=== PATIENT | female | born 2005 | race Caucasian/White ===

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

== ENCOUNTER 2025-08-05 11:24 | Emergency (ER) | payer OTHER, SELFPAY ==
--- OUTSIDE RECORDS SUMMARY | 2025-08-05 11:28 | XMS_ITS | Encounter Summary ---
Author Organization [facility] Address [address] [facility] [place] [address] Care Team Providers Care Chain Saw Driver Name Role Phone Katelynn Nelson Yanni LOREDON-AUTOGRAPHER Primary Care Provider Encounter Details Date Type Department Care Team (Late Contact Info) Description 07/13/2025 Results Follow-Up [facility] - Neurology [address] [place] [phone] Bridget Pierre APRN-AUTOGRAPHER [address] [place] [address] [address] [place] [address] Social History Tobacco Use Types Packs/Day Years Used Date Smoking Tobacco: Never Alcohol Use Standard Drinks/Week Comments No 0 (1 standard drink = 0.6 oz pur e alcohol) Comments No Sex and Gender Information Value Date Recorded Sex Assigned at Not on file Legal Sex Female 9:12 AM IVORY POLISHER Gender Identity Not on file Sexual Orientation Not on file documented as of this encounter Plan of Treatment Upcoming Encounters Date Type Department Care Team (Late Contact Info) Description 10/21/2025 8:30 AM IVORY POLISHER Office Visit [facility] - Neurology [address] [place] [phone] Bridget Pierre WASTE MANAGEMENT ENGINEER-AUTOGRAPHER [address] [place] [address] [address] [place] [phone] documented as of this encounter Visit Diagnoses Not on filedocumented in this encounter Care Teams Chain Saw Driver Relationship Specialty Start Date End Date Katelynn Nelson, NIGHAT-AUTOGRAPHER [address] [place] [address] PCP - General Nurse Practitioner Family 05/02/25 documented as of this encounter
--- OUTSIDE RECORDS SUMMARY | 2025-08-05 11:28 | XMS_ITS | Encounter Summary ---
Author Organization [facility] Address [address] [place] [address] Care Team Providers Care Tank Wagon Driver Name Role Phone Katelynn Nelson NP Primary Care Provider + [phone] Encounter Details Date Type Department Care Team (Late st Contact Info) Description 04/18/2025 MyChart Message Enc [facility] Medical Group Multispecialty Care - [facility] [address] [facility], [address] [place] [address] Marjan Shearer MD [address] [place], [place] [id number] Migraine Social History Tobacco Use Types Packs/Day Years Used Date Smoking Tobacco: Never Passive Smoke Exposure: Never Smokeless Tobacco: Never Alcohol Use Standard Drinks/Week Comments No 0 (1 standard drink = 0.6 oz pur e alcohol) AUDIT-C Answer Date Recorded Frequency of Alcohol Consumption Never 03/16/2021 Average Number of Drinks Not on file 021 Frequency of Binge Drinking Not on file 05/2021 PHQ-2 Answer Date Recorded Patient Health Questionnaire-2 Score 4 04/11/2025 Comments No Sex and Gender Information Value Date Recorded Sex Assigned at Female 12/15/2024 8:04 AM PET FOOD DEBONER Legal Sex Female 5:22 PM CDT Gender Identity Female 12/15/2024 8:04 AM PET FOOD DEBONER Sexual Orientation Not on file documented as of this encounter Plan of Treatment Upcoming Encounters Date Type Department Care Team (Late st Contact Info) Description 11/23/2025 1:20 PM PET FOOD DEBONER Office Visit [facility] Medical Group Family & Internal Medicine - [place] [address] [place] [address] [place] [address] [facility] [address] [place], [place] [phone] documented as of this encounter Visit Diagnoses Not on filedocumented in this encounter Additional Health Concerns Assessment Noted Time PHQ-9 Depression Total Score: 20 025 11:53 AM CDT documented as of this encounter Care Teams Tank Wagon Driver Relationship Specialty [place] [address] [facility] [address] [place] [address] PCP - General Nurse Practitioner Family 06/05/23 documented as of this encounter
--- OUTSIDE RECORDS SUMMARY | 2025-08-05 11:28 | XMS_ITS | Clinical Summary ---
Author Organization [facility] Address [address] [place] [address] Care Team Providers Care Hydrographer Name Role Phone Katelynn Nelson NP Primary Care Provider + [phone] Allergies No known active allergies Medications etonogestrel (NEXPLANON) 68 MG SC implant Inject 1 each (68 mg total) into the skin. 11/07/20 22 025 Active spironolactone (ALDACTONE) 100 MG tablet Active propranolol (INDERAL) 20 MG tabletIndications: Situational mixed anxiety and depressive disorder Take 1 tablet (20 mg total) by mouth 3 (three) times daily. 90 tablet 2 04/11/20 25 Active Additional Information Patient taking differently:20 mg OralPRN, Reported on 05/23/2025 rimegepant (NURTEC) 75 MG disintegrating tabletIndications: Migraine without aura, not intractable, without status migrainosus Take 1 tablet (75 mg total) by mouth every other day. Max of 1 tablet (75 mg) in 24 hours. 16 tablet 5 04/13/20 25 Active escitalopram (LEXAPRO) 10 MG tabletIndications: Situational mixed anxiety and depressive disorder Take 1 tablet (10 mg total) by mouth daily. 90 tablet 3 05/23/20 25 Active valACYclovir (VALTREX) 1 g tabletIndications: Herpes labialis Take 2 tablets (2,000 mg total) by mouth every 12 (twelve) hours. 4 tablet 5 06/13/20 25 Active Active Problems Problem Noted Date Diagnosed Date Intractable chronic migraine with aura with status migrainosus 12/23/2024 Migraine with aura and with status migrainosus, not intractable 06/01/2024 Overweight (BMI 25.0-29.9) 06/01/2024 Closed fracture of distal en d of right fibula with routine healing 01/02/2017 Encounters Date Type Department Care Team Description 05/30/2025 Telephone [facility] Internal [address] [address] Katelynn Nelson NP Medication Problem 05/26/2025 MyChart Message Enc [facility] [address] [address] Katelynn Nelson NP Cold Sore 05/23/2025 1:00 PM CDT Office Visit [facility] Internal [address] [address] Katelynn Nelson, TEMITOPE Anxiety (1 mo f/u); Depression (1 mo f/u) 05/23/2025 Travel 05/10/2025 MyChart Message Enc [address] [address] Katelynn Nelson, TEMITOPE TB test from Last 3 Months Immunizations Immunization Administration Dates Next Due DTaP (Daptacel) 06/12/2009, 5,02/11/2005,2004,2004 HPV4 (Gardasil) 02/11/2017,11/15/2016,06/12/2016 Hepatitis A (Generic) 07/06/2019,03/23/2018 Hepatitis A (Havrix [address]) 07/06/2019, 018 Hepatitis B Pediatric 02/11/2005,2004,06/11 Hib (Generic) 10/10/2005, 5,2004,2003 Hib (Omni-Hib) 10/10/2005, 5,2004,2003 Influenza (Generic) 09/29/2020, 9,08/04/2018,2014 Influenza Adult (Generic) 06/26/2023,10/09/2022, 10/12/2021 MMR 06/12/2009,07/11/2005 Menactra 07/18/2020,08/24/2015 PFIZER COVID-19 (ORIGINAL FORMULATION, PURPLE CAP) mRNA, LNP-S, PF, 30 MCG/0.3 ML DOSE 02/14/2021,01/24/2021 Polio IPV (Ipol) 06/12/2009, 5,2004,2003 Tdap (Generic) 08/24/2015 Varicella (Generic) 06/12/2009,07/11/2005 Family History Medical History Relation Comments Arthritis Brother Arthritis Maternal Grandmother Defects Mother Hole in heart Mental Health Mother Stroke Mother Mental Health Sister Relation Status Comments Brother Father Alive Maternal Grandmother Mother Alive Sister Social History Tobacco Use Types Packs/Day Years Used Date Smoking Tobacco: Never Passive Smoke Exposure: Never Smokeless Tobacco: Never Tobacco Cessation:Counseling Given: No Alcohol Use Standard Drinks/Week Comments No 0 [...] Sex Assigned at Female 12/15/2024 8:04 AM MANAGER STATISTICAL Legal Sex Female 5:22 PM CDT Gender Identity Female 12/15/2024 8:04 AM MANAGER STATISTICAL Sexual Orientation Not on file Last Filed Vital Signs Vital Sign Reading Time Taken Comments Blood Pressure 109/73 05/23/2025 12:51 PM CDT Pulse 86 05/23/2025 12:51 PM CDT Temperature 37.3 C (99.1 F) 05/23/2025 12:51 PM CDT Respiratory Rate 24 05/23/2025 12:51 PM CDT Oxygen Saturation 100% 05/23/2025 12:51 PM CDT Inhaled Oxygen Concentration - - Weight 73.7 kg (162 lb 6.4 oz) 05/23/2025 12:51 PM CDT Height 167.6 cm (5' 6) 05/23/2025 12:51 PM CDT Body Mass Index 26.21 05/23/2025 12:51 PM CDT Plan of Treatment Upcoming Encounters Date Type Department Care Team (Late st Contact Info) Description 11/23/2025 1:20 PM MANAGER STATISTICAL Office Visit [facility] Medical Group Family & Internal Medicine [facility] [address] [place] [address] [place] [address] [facility] [address] [place] [address] Health Maintenance Due Date Last Done Comments Annual Physical 2007 Chlamydia Screening Females ages 16-24 11/07/2022 11/07/2021 Cervical Cancer Screening Pap Smear (Age 21 to 29) Every 3 Years 11/07/2024 11/07/2021 Cervical Cancer Screening 11/07/2024 COVID-19 Vaccine ( season) 2025 10/09/2022, 11/05/2021, 02/14/2021, Additional history exists DTaP, Tdap and Td Vaccines (7 - Td or Tdap) 08/24/2025 08/24/2015, 06/12/2009, 10/10/2005, Additional history exists Meningococcal B Vaccine (1 of 2 - Standard) 04/11/2026 Postponed from 2020 (Patient Refused) Hepatitis C 06/01/2054 Postponed from 2022 (Patient Refused) Hepatitis B Vaccines Completed 02/11/2005, 2004, 2004 HPV Vaccines Completed 02/11/2017, 04/2017, 06/12/2016 Meningococcal Vaccine Completed 07/18/2020, 015 PHQ-2 (Physician [place]) Completed 04/11/2025 Pneumococcal Vaccine: Pediatrics (0 to 5 Years) and At-Risk Patients (6 to 49 Years) Aged Out No longer eligible based on patient's age to complete this topic RSV Immunizations Under 20 Months Aged Out No longer eligible based on patient's age to complete this topic Insurance [employer] OPEN ACCESS [facility] Care Teams Hydrographer Relationship Specialty [place] [phone] [address] [place] [phone] PCP - General Nurse Practitioner Family 06/05/23
--- OUTSIDE RECORDS SUMMARY | 2025-08-05 11:29 | XMS_ITS | Clinical Summary ---
Author Organization [facility] Address [address] [facility] Attn: Epic Prelude ADT KENRICK [place] [address] Care Team Providers Care Water Pipe Installer Name Role Phone Unavailable Primary Care Provider Unavailabl e Allergies No known active allergies Medications ketorolac tromethamine (TORADOL) 10 mg tablet Take 1 Tablet (10 mg) by mouth every 6 hours as needed for Pain. 12 Tablet 12/05/2022 Active Social History Tobacco Use Types Packs/Day Years Used Date Smoking Tobacco: Never Assessed Adolescent Education Answer Date Record ed Getting School Help Needed Not on file 06/15 Comments Unknown Sex and Gender Information Value Date Recorded Sex Assigned at Not on file Legal Sex Female 8:56 PM TOWN MANAGER Gender Identity Not on file Sexual Orientation Not on file Last Filed Vital Signs Vital Sign Reading Time Taken Comments Blood Pressure 130/70 12/05/2022 4:37 PM TOWN MANAGER Pulse 81 04/06/2019 7:13 PM CDT Temperature 36.5 C (97.7 F) 12/05/2022 4:37 PM TOWN MANAGER Respiratory Rate 18 12/05/2022 4:37 PM TOWN MANAGER Oxygen Saturation 100% 12/05/2022 4:37 PM TOWN MANAGER Inhaled Oxygen Concentration - - Weight 70.3 kg (155 lb) 12/05/2022 4:37 PM TOWN MANAGER Height 167.6 cm (5' 6) 12/05/2022 4:37 PM TOWN MANAGER Body Mass Index 25.02 12/05/2022 4:37 PM TOWN MANAGER Plan of Treatment Health Maintenance Due Date Last Done Comments CHLAMYDIA SCREENING (ANNUAL) 11-24 YEARS 2015 HPV VACCINES (1 - 3-dose series) 2019 DTAP/TDAP/TD VACCINES (1 - Tdap) 2023 HEPATITIS B VACCINES (1 of 3 - 19+ 3-dose series) 06/11 INFLUENZA VACCINE (#1) 2025 CERVICAL CANCER SCREENING 2025 HPV/Cotest (21-29) 2025 PAP SMEAR 2025 Insurance [employer] [place] Member Subscriber Plan / Payer (Ef fective 2023-Present) Name:Tosha Bragg Relation to Subscriber:Child Name:Sheree Bragg Date of :1972 (Home) Address: [facility] [place] [address] Payer ID:Not on file Group ID:Not on file Type:[facility] Address: [address] BLUE ACCESS/TRUE BLUE PPO
--- OUTSIDE RECORDS SUMMARY | 2025-08-05 11:29 | XMS_ITS | Clinical Summary ---
Author Organization [facility] Address [address] [place] [address] Care Team Providers Care Tire Buster Name Role Phone No, Physician Primary Care Provider [phone] Allergies No known active allergies Medications drospirenone, contraceptive, (Slynd) tablet tablet Take 1 each (4 mg total) by mouth daily 54 tablet 10/21/2022 Active Hospital, Clinic, or Other Facility Administered Medication Ordered Dose Route Frequency Start Date End Date Status etonogestreL (NEXPLANON) implant 68 mgIndications:Pregna ncy Contraception 68 mg subderm Continuous (implanted device) 11/07/2022 11/06/2025 Active Active Problems No known active problems Family History Medical History Relation Name Comments Breast cancer Mother's Sister Ovarian cancer Neg Hx Relation Name Status Comments Mother's Sister Social History Tobacco Use Types Packs/Day Years Used Date Smoking Tobacco: Never Comments No Sex and Gender Information Value Date Recorded Sex Assigned at Not on file Legal Sex Female 6:47 PM CDT Gender Identity Not on file Sexual Orientation Not on file Obstetrics History Para Term AB IAB SAB Ectopic Multiple Livin g Live Births 0 0 0 0 0 0 0 0 0 0 0 Last Filed Vital Signs Vital Sign Reading Time Taken Comments Blood Pressure 116/68 11/07/2022 8:41 AM PRESCHOOL LEAD TEACHER Pulse 68 07/10/2021 1:59 AM CDT Temperature 36.4 C (97.5 F) 07/10/2021 1:59 AM CDT Respiratory Rate 18 07/10/2021 1:59 AM CDT Oxygen Saturation 98% 07/09/2021 7:51 PM CDT Inhaled Oxygen Concentration - - Weight 71.8 kg (158 lb 6.4 oz) 11/07/2022 8:41 A M PRESCHOOL LEAD TEACHER Height 167.6 cm (5' 5.98) 11/07/2022 8:41 AM CS T Body Mass Index 25.58 11/07/2022 8:41 AM PRESCHOOL LEAD TEACHER Plan of Treatment Health Maintenance Due Date Last Done Comments Cervical Cancer Screening 2004 Depression Screening 2004 Hepatitis C Screening 2004 Meningococcal B Vaccine (1 of 2 - Standard) 2020 Regular Well Visit/Exam 18-64 2022 Chlamydia and Gonorrhea (GC/CT) Screening 11/07/2022 11/07/2021 Covid-19 Vaccine ( season) 2025 10/09/2022, 11/05/2021, 02/14/2021, Additional history exists Influenza Vaccine (#1) 2025 , 10/12/2021, 09/29/2020, Additional history exists DTaP/Tdap/Td Vaccine (7 - Td or Tdap) 08/24/2025 08/24/2015, 06/12/2009, 10/10/2005, Additional history exists Hepatitis B Screening Completed 02/11/2005 , 2004, 2004 Varicella Vaccines Completed 06/12/2009, 07/11/2005 HPV Vaccines Completed 02/11/2017, 04/2017, 06/12/2016 Meningococcal Vaccine Completed 07/18/2020, 015 Pneumococcal vaccine <65 Aged Out No longer eligible based on patient's age to complete this topic Procedures Procedure Name Priority Date/Time Associated Diagnosis Comments N. GONORRHOEAE/C. TRACHOMATIS AMPLIFICATION Routine 11/07/2021 12:00 AM PRESCHOOL LEAD TEACHER Screening for STD (sexually transmitted disease) from Last 3 Months or Most Recently Relevant to Health Maintenance Results * N. gonorrhoeae/C. trachomatis Amplification Urine (11/07/2021 12:00 AM PRESCHOOL LEAD TEACHER) C. trachomatis Not Detected Not Detected YOCASTA LLANES Comment:Testing performed by : [facility], [address] [place] [address], [place]., [address] N. gonorrhoeae Not Detected Not Detected YOCASTA LLANES Comment: Interpretive Data Testing performed by the [facility]. This assay detects Chlamydia trachomatis and Neisseria gonorrhoeae by nucleic acid amplification testing (NAAT). This test is approved by the [place] Food and Drug Administration and the performance characteristics have been verified by the laboratory. The performance characteristics of this test have not been evaluated in individuals less than 14 years of age. Current Interpretive Data was last revised on 2019. Testing performed by: [facility], [address] [place] [address]., [address] Urine (None) 11/07/2021 11/08/2021 1 1:19 AM PRESCHOOL LEAD TEACHER us Leela Day [facility] MICROBIOLOGY - GENE RAL ORDERABLES Final Result YOCASTA [address] [facility] Department [place] [address] from Last 3 Months or Most Recently Relevant to Health Maintenance Insurance [employer] [facility] [employer]THEM ACCESS [employer] [facility] [place] [address] [facility] [employer]S * Guarantor: SYSTEM [employer] Account Type Relation to Patient Date of Phone Billing Address Personal/Family Care Teams Tire Buster Relationship Specialty Start Date End Date No, Physician PCP - General 11/07/22
--- OUTSIDE RECORDS SUMMARY | 2025-08-05 11:29 | XMS_ITS | Encounter Summary ---
Author Organization [facility] Address [address] [place] [address] Care Team Providers Care Station Manager Name Role Phone Katelynn Nelson NP Primary Care Provider + [phone] Encounter Details Date Type Department Care Team (Late st Contact Info) Description 05/10/2025 Weimit Message Enc [facility] Medical Group Family & Internal Medicine [address] [address] Katelynn Nelson NP [address] [place] [address] TB test Social History Tobacco Use Types Packs/Day Years [...] Sex Assigned at Female 12/15/2024 8:04 AM PUBLIC WELFARE DIRECTOR Legal Sex Female 5:22 PM CDT Gender Identity Female 12/15/2024 8:04 AM PUBLIC WELFARE DIRECTOR Sexual Orientation Not on file documented as of this encounter Plan of Treatment Upcoming Encounters Date Type Department Care Team (Late st Contact Info) Description 11/23/2025 1:20 PM PUBLIC WELFARE DIRECTOR Office Visit [facility] Medical Group Family & Internal Medicine - [place] [address] [place] [address] [place] [address] [facility] [address] [place] [phone] documented as of this encounter Visit Diagnoses Not on filedocumented in this encounter Additional Health Concerns Assessment Noted Time PHQ-9 Depression Total Score: 20 025 11:53 AM CDT documented as of this encounter Care Teams Station Manager Relationship Specialty Start [place] [address] [facility] [address] [place] [address] PCP - General Nurse Practitioner Family 06/05/23 documented as of this encounter
--- OUTSIDE RECORDS SUMMARY | 2025-08-05 11:29 | XMS_ITS | Encounter Summary ---
Author Organization [facility] Address [address] [place] [address] Care Team Providers Care Geographic Information Systems Analyst Name Role Phone Katelynn Nelson NP Primary Care Provider + [phone] Encounter Details Date Type Department Care Team (Late st Contact Info) Description 11/27/2024 SolFocus Message Enc [facility] Medical Group Family & Internal Medicine [address] [address] Katelynn Nelson [place] [phone] [place] [address] Migraine medication Social History Tobacco Use Types Packs/Day Years [...] Answer Date Recorded Patient Health Questionnaire-2 Score 0 02/25/2024 Comments No Sex and Gender Information Value Date Recorded Sex Assigned at Female 12/15/2024 8:04 AM TWISTER FRAME TENDER Legal Sex Female 5:22 PM CDT Gender Identity Female 12/15/2024 8:04 AM TWISTER FRAME TENDER Sexual Orientation Not on file documented as of this encounter Progress Notes * Katelynn Nelson NP - 11/30/2024 12:36 PM CST We can try some better medication for migraine management, we can add a referral order to neurology, and [facility] needs cardiology for tilt table test for diagnosis. Please help patient schedule an appointment so we can help move forward. TER FRAME TENDER * Liseth Shafer MA - 11/29/2024 9:36 AM CST Please advise TER FRAME TENDER documented in this encounter Plan of Treatment Upcoming Encounters Date Type Department Care Team (Late st Contact Info) Description 11/23/2025 1:20 PM TWISTER FRAME TENDER Office Visit [facility] Medical Group Family & Internal Medicine - [place] [phone] Katelynn Nelson NP [address] [place] [address]. [place] [address] documented as of this encounter Visit Diagnoses Not on filedocumented in this encounter Care Teams Geographic Information Systems Analyst Relationship Specialty Start Date End Date Katelynn Nelson NP [address] [place] [address] PCP - General Nurse Practitioner Family 06/05/23 documented as of this encounter
--- OUTSIDE RECORDS SUMMARY | 2025-08-05 11:29 | XMS_ITS | Clinical Summary ---
Author Organization [facility] Address [address] [place] [address] Care Team Providers Care Mobile Application Architect Name Role Phone LeslieKatelynn kaplan CUSTOMER CONTACT SPECIALIST-AUTO HAULER Primary Care Provider Source Comments [facility],non-owned Affiliates and Associated Physician Practices is amultiple site organization consisting of ambulatory clinics and hospital sitesin [place], [place], [place] and [place]. This disclosure is being madepursuant to the Care Everywhere program and may not contain all information available regarding this patient. Last updated 18.[facility] Allergies No known active allergies Medications * Be aware that medications may not be up to date on this document. Alwaysverify current medications with the patient. spironolactone (Aldactone) 100 MG tablet Take 1 (one) tablet by mouth once daily Active etonogestrel (Nexplanon) 68 MG implant Inject 68 (sixty eight) mg subcutaneously 11/07/20 22 025 Active escitalopram (Lexapro) 10 MG tablet Take 1 (one) tablet by mouth once daily 05/23/20 25 Active propranolol (Inderal) 20 MG tabletIndicatio ns:Intractable chronic migraine with aura with status migrainosus Take 1 (one) tablet by mouth 2 times daily 60 tablet 2 06/17/20 25 Active fremanezumab-vf rm (Ajovy) 225 MG/1.5ML injectionIndica tions:Intractab le chronic migraine with aura with status migrainosus Inject 1.5 mL subcutaneously every 30 days 1.5 mL 5 06/17/20 25 Active rimegepant (Nurtec) 75 MG tabletIndicatio ns:Intractable chronic migraine with aura with status migrainosus Take 75 mg by mouth once daily as needed for Migraine 8 tablet 5 06/17/20 25 Active Active Problems Problem Noted Date Diagnosed Date Intractable chronic migraine with aura with status migrainosus 12/23/2024 Migraine with aura and with status migrainosus, not intractable 06/01/2024 Closed fracture of distal en d of right fibula with routine healing 01/02/2017 Closed fracture of part of fibula 11/19/2016 Encounters Date Type Department Care Team Description 07/13/2025 Results Follow-Up [facility] - Neurology [address] [place] [phone] Bridget Pierre APRN-CNP 07/08/2025 8:11 AM CDT - 07/08/2025 11:59 PM CDT Hospital Encounter [facility] [address] [place] [address] Bridget Pierre APRN-CNP Discharge Disposition: Home or Self Care 07/08/2025 Travel 06/20/2025 Telephone [facility] - Neurology [address] [place] [phone] Bridget Pierre APRN-CNP Medication Prior Auth Request (Ajovy) 06/17/2025 9:00 AM CDT Office Visit [facility] - Neurology [address] [place] [phone] Bridget Pierre APRN-CNP Intractable chronic migraine with aura with status migrainosus (Primary Dx); Peripheral vision loss, bilateral; Chronic daily headache; Tension headache 06/17/2025 Travel from Last 3 Months Immunizations Immunization Administration Dates Next Due DTAP 5 PERTUSSIS ANTIGENS 06/12/2009,11/2004,02/11/2005,12/10,2004 HEP A PEDS 2 DOSE 07/06/2019,03/23/2018 HEP B VACCINE, PED/ADOL 02/11/2005,2004, HIB-PRP-T 4 DOSE 10/10/2005, 5,2004,10/02 Human Papilloma Virus David valent Vaccine 02/11/2017,11/15/2016,06/12/2016 INFLUENZA VACCINE 06/26/2023, 2,10/12/2021,09/29,08/23/2019,08/04/2018,10/17/2015 MENINGOCOCCAL ACWY (MCV4P) VAC IM 07/18/2020, MMR 06/12/2009,07/11/2005 POLIO IPV 06/12/2009, 5,2004,10/02 TDAP (7yrs+) 08/24/2015 VARICELLA 06/12/2009,07/11/2005 Social History Tobacco Use Types Packs/Day Years Used Date Smoking Tobacco: Never Alcohol Use Standard Drinks/Week Comments No 0 (1 standard drink = 0.6 oz pur e alcohol) Comments No Sex and Gender Information Value Date Recorded Sex Assigned at Not on file 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 Gender Identity Not on file Sexual Orientation Not on file Last Filed Vital Signs Vital Sign Reading Time Taken Comments Blood Pressure 116/80 06/17/2025 8:44 AM CDT Pulse 66 06/17/2025 8:44 AM CDT Temperature - - Respiratory Rate - - Oxygen Saturation 99% 06/17/2025 8:44 AM CDT Inhaled Oxygen Concentration - - Weight 75 kg (165 lb 6.4 oz) 06/17/2025 8:44 AM CDT Height 167.6 cm (5' 6) 06/17/2025 8:44 AM CDT Body Mass Index 26.7 06/17/2025 8:44 AM CDT Plan of Treatment Upcoming Encounters Date Type Department Care Team (Late st Contact Info) Description 10/21/2025 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 [facility] [place] [address] Bridget Pierre, CUSTOMER CONTACT SPECIALIST-AUTO HAULER [address] [place] [address] Health Maintenance Due Date Last Done Comments HIV SCREENING 2019 MENINGOCOCCAL (Group B) VACCINE SHARED DECISION-MAKING (1 of 2 - Standard) 2020 HEPATITIS C SCREENING 07/01/2022 CHLAMYDIA/GONORRHEA SCREENING 11/07/2022 11/07/2021 DEPRESSION SCREENING 11/10/2024 PAP SMEAR 2025 COVID-19 VACCINE ( season) 2025 02/14/2021, 01/24/2021 INFLUENZA VACCINE (#1) 2025 , 10/09/2022, 10/12/2021, Additional history exists DTAP/TDAP/TD VACCINES (7 - Td or Tdap) 08/24/2025 08/24/2015, 06/12/2009, 10/10/2005, Additional history exists ZOSTER VACCINE (1 of 2) 2054 HEPATITIS B VACCINE Completed 02/11/2005, 2004, 2004 HIB VACCINE Completed 10/10/2005, 02/2005, 2004, Additional history exists HPV VACCINE Completed 02/11/2017, 04/2017, 06/12/2016 MENINGOCOCCAL GROUPS A/C/Y/W VACCINE Completed 07/18/2020, 08/24/2015 PNEUMOCOCCAL VACCINE Aged Out No long er eligible based on patient's age to complete this topic Procedures Procedure Name Priority Date/Time Associated Diagnosis Comments CT ANGIO BRAIN AND NECK Routine 07/08/2025 8:39 AM CDT Intractable chronic migraine with aura with status migrainosus Peripheral vision loss, bilateral from Last 3 Months Results * CT Angio Brain And Neck (07/08/2025 8:39 AM CDT) Anatomical Region Laterality Modality Head Computed Tomogra phy 07/08/2025 3:47 PM CDT Impressions 07/08/2025 3:59 PM CDT IMPRESSION: 1. No acute intracranial abnormality. 2. No large arterial occlusions or significant stenoses identified in the head or neck. Report dictated by Jose A Kruse MD (residential coordinator). > Dictated by Resident Services Director I, Matty Bales MD have personally reviewed and interpreted this examination/study. > Interpreting Provider: Matty Bales MD on 07/08/2025 3:59 PM Narrative 07/08/2025 3:59 PM CDT PROCEDURE: CT ANGIO BRAIN AND NECK, DATE/TIME OF EXAM: 07/08/2025 8:41 AM, LOCATION [facility] INDICATION: G43.E11: Intractable chronic migraine with aura with status migrainosus H53.453: Peripheral vision loss, bilateral ADDITIONAL CLINICAL INFORMATION: Ordering Provider Reason For Exam: Technologist Note: Additional: COMPARISON: None. EXAMINATION: 1. Computed tomographic (CT) angiography of the head without and with contrast 2. CT angiography of the neck with contrast TECHNIQUE: CT of the head was performed without contrast according to standard protocol. Then CT angiography of the head and neck was obtained after the uneventful administration of 100 mL Isovue 370 intravenous contrast. Three dimensional postprocessing was performed by the technologist and sent to the workstation for review. FINDINGS: Non-angiographic findings: No acute intra- or extra-axial fluid collections are identified. The ventricles are of normal size, shape, and morphology. The basilar cisterns are patent. No mass effect or midline shift is seen. The lee-white matter differentiation is normal. Other than mild paranasal sinus disease, the visualized portions of the orbits, paranasal sinuses, and mastoids appear normal. No acute fracture is identified. No soft tissue abnormalities are identified in the neck. Angiographic findings: The visible aortic arch appears normal. The configuration of the brachiocephalic vessels is typical. The innominate artery and both subclavian arteries appear normal. The right common and internal carotid arteries as well as the right carotid bifurcation appear normal. The left common and internal carotid arteries as well as the left carotid bifurcation appear normal. The cervical vertebral arteries appear normal. The distal internal carotid arteries appear normal. The anterior and middle cerebral arteries appear normal. The distal vertebral arteries appear normal. The basilar artery and posterior cerebral arteries appear normal. No aneurysms, vascular occlusions, or intracranial stenoses are identified. Procedure Note Matty Bales MD - 07/08/2025 PROCEDURE: CT ANGIO BRAIN AND NECK, DATE/TIME OF EXAM: 07/08/2025 8:41AM, LOCATION [facility] INDICATION: G43.E11: Intractable chronic migraine with aura with status migrainosus H53.453: Peripheral vision loss, bilateral ADDITIONAL CLINICAL INFORMATION: Ordering Provider Reason For Exam: Technologist Note: Additional: COMPARISON: None. EXAMINATION: 1. Computed tomographic (CT) angiography of the head without and with contrast 2. CT angiography of the neck with contrast TECHNIQUE: CT of the head was performed without contrast according to standard protocol. Then CT angiography of the head and neck was obtained after the uneventful administration of 100 mL Isovue 370 intravenous contrast. Three dimensional postprocessing was performed by the technologist and sent to the workstation for review. FINDINGS: Non-angiographic findings: No acute intra- or extra-axial fluid collections are identified. The ventricles are of normal size, shape, and morphology. The basilarcisterns are patent. No mass effect or midline shift is seen. The lee-whitematter differentiation is normal. Other than mild paranasal sinus disease, the visualized portions of the orbits, paranasal sinuses, and mastoidsappear normal. No acute fracture is identified. No soft tissue abnormalities are identified in the neck. Angiographic findings: The visible aortic arch appears normal. The configuration of the brachiocephalic vessels is typical. The innominate artery and both subclavian arteries appear normal. The right common and internal carotid arteries as well as the right carotid bifurcation appear normal. Theleft common and internal carotid arteries as well as the left carotid bifurcation appear normal. The cervical vertebral arteries appearnormal. The distal internal carotid arteries appear normal. The anterior andmiddle cerebral arteries appear normal. The distal vertebral arteries appear normal. The basilar artery and posterior cerebral arteries appearnormal. No aneurysms, vascular occlusions, or intracranial stenoses areidentified. IMPRESSION: 1. No acute intracranial abnormality. 2. No large arterial occlusions or significant stenoses identified inthe head or neck. Report dictated by Jose A Kruse MD (residential coordinator). > Dictated by Resident Services Director I, Matty Bales MD have personally reviewed and interpreted this examination/study. > Interpreting Provider: Matty Bales MD on 07/08/2025 3:59 PM us Bridget Pierre CUSTOMER CONTACT SPECIALIST-AUTO HAULER CT ORDERABLES Final Result from Last 3 Months Insurance [employer] Care Teams Mobile Application Architect Relationship Specialty Start Date End Date Katelynn Nelson, CUSTOMER CONTACT SPECIALIST-AUTO HAULER [address] [place] [phone] PCP - General Nurse Practitioner Family 05/02/25
[2025-08-05 11:42] VITALS: BP 104/62; PULSE 59; RESP 18; TEMP 36.6; O2SAT 100
--- NOTE | 2025-08-05 12:13 | ED_ITS ---
HPI - Skin/Abscess/Foreign Bdy General Chief complaint: Skin/Abscess/Foreign Body Stated complaint: Swollen lymph node, cyst on top of head Time Seen by Provider: 08/05/25 11:58 Source: patient and RN notes reviewed Mode of arrival: ambulatory Limitations: no limitations History of Present Illness HPI narrative: Patient presents today complaining of scabbed bump to the top of her scalp and some swollen lymph nodes behind her right ear since last night. Denies drainage the scalp. No history of abscesses. No OTC treatment prior to arrival. No recent illness, cough, sore throat, ear pain. Related Data Home Medications ?Medication ?Instructions ?Recorded ?Confirmed ?Last Taken ?Type escitalopram oxalate 10 mg tablet mg 08/05/25 Unknown History propranolol 20 mg tablet mg 08/05/25 Unknown History rimegepant 75 mg disintegrating mg 08/05/25 Unknown H istory tablet (Nurtec ODT) spironolactone 100 mg tablet mg 08/05/25 Unknown Hist ory Allergies Allergy/AdvReac Type Severity Reaction Status Date / Time No Known Allergies Allergy Verified 08/05/25 11:45 [facility] Comments At time of signature, I have reviewed and agree with nursing past medical, surgical, social and family history unless otherwise noted. Please see nursing chart for further information. There is no relevant family history pertinent to the presenting complaint Exam Narrative: GENERAL: Well-appearing, well-nourished, and in no acute distress. HEAD: Normocephalic. Tiny scabbed lesion to the anterior crown measuring approximately 2 mm overlying a subtle nodule measuring approximately 4 mm. Mildly tender palpation. No fluctuance. Scant serous drainage. EYES: EOMI. No redness or drainage. Conjunctivae normal. ENT: Mucous membranes pink and moist. NECK: Normal AROM. Supple. 2 swollen and tender right postauricular lymph nodes. CHEST: No respiratory distress. EXTREMITIES: Normal range of motion. No edema. SKIN: Warm, dry, no rash. Capillary refill normal. Normal skin turgor. NEURO: No focal deficits. Alert and oriented x3. Gait steady. PSYCH: Normal affect. No signs of depression or anxiety. Course Course Emergency Course: Tiny scalp scab removed manually with small open wound resulting underneath. 2 small hairs in center. These were also removed manually. Area expressed with no drainage resulting. Cleansed with wound cleanser. Level of Care: Express Care Visit Vital Signs Vital signs: Vital Signs Temperature 97.9 F 08/05/25 11:42 Pulse Rate 59 L 08/05/25 11:42 Respiratory Rate 18 08/05/25 11:42 Blood Pressure 104/62 08/05/25 11:42 Pulse Oximetry 100 08/05/25 11:42 Oxygen Delivery Room Air 08/05/25 11:42 Temperature 97.9 F 08/05/25 11:42 Pulse Rate 59 L 08/05/25 11:42 Respiratory Rate 18 08/05/25 11:42 Blood Pressure 104/62 08/05/25 11:42 Pulse Oximetry 100 08/05/25 11:42 Oxygen Delivery Room Air 08/05/25 11:42 Reviewed MDM - Skin/Abscess/Foreign Bdy MDM Narrative Medical decision making narrative: 20-year-old female patient presents with a wound to her scalp and right postauricular lymphadenopathy and tenderness since yesterday. No recent illness or pain. No drainage. Upon exam, patient has a 2 mm scab overlying a 4 mm slightly raised nodule to the scalp as well as to tender swollen lymph nodes via the right ear. Scalp lesion was cleansed and patient will be placed on Keflex for folliculitis. Lymph nodes will likely resolve once the folliculitis has resolved as there does not seem to be another source of infection. Recommend patient follow-up with her PCP if lymph nodes do not return to baseline in 1-2 weeks. Patient agrees with plan. Vital signs stable. Anticipatory guidance given. ED precautions given. Differential Diagnosis Differential diagnosis: Likely abscess of skin or subcutaneous tissue, cellulitis, insect bites, impetigo and other (Lymphadenopathy) Critical Care Time Critical Care Time Critical Care Time: No Discharge Plan Discharge Clinical Impression: Folliculitis of scalp, Postauricular lymphadenopathy Patient Disposition: Home Condition: Stable Instructions: Antibiotic Form, Folliculitis (ED) Additional Instructions: Please take the Keflex as prescribed until gone. Clean the wound on your scalp daily with either sober water or while your in the shower. Do not scrub or squeeze the area. As discussed, if this area gets significantly larger or starts draining, or be start running a fever, please go to the ER immediately for further evaluation. If your swollen lymph nodes do not resolve in 1-2 weeks, please follow-up with your PCP. Patient Language: Sudanese Prescriptions: New cephalexin 500 mg capsule 500 mg PO Q6H 7 Days Qty: 28 0RF No Action spironolactone 100 mg tablet propranolol 20 mg tablet escitalopram oxalate 10 mg tablet Nurtec ODT 75 mg tablet,disintegrating Follow-up/Referrals: Leslie,Katelynn Crum APRN [Primary Care Provider, [facility]] Time of Disposition: 12:12
== END 2025-08-05 12:16 | disposition home or self-care (01) ==
PROVIDERS: Emergency Provider Nurse Practitioner; PCP Nurse Practitioner Family
DX: L73.9 Follicular disorder, unspecified (principal); R59.0 Localized enlarged lymph nodes; Z79.899 Other long term (current) drug therapy
CPT/HCPCS: 99213; G0463

== ENCOUNTER 2025-10-18 12:29 | Emergency (ER) | payer OTHER, SELFPAY ==
--- NOTE | 2025-10-18 12:36 | ED_ITS ---
HPI - URI/Sore Throat General Chief Complaint: Upper Respiratory Infection Stated Complaint: Flu Like Source: patient and RN notes reviewed Mode of arrival: ambulatory Limitations: no limitations History of Present Illness HPI Narrative: Patient is a 20-year-old female who presents to the [facility] with complaints congestion, headache, generalized body aches, and sore throat. Patient states that her symptoms started last night but worsened this morning. She denies cough, chest pain, shortness of breath. States that she did have a fever last night but no fever today. She is unsure of any known sick contacts. Related Data Home Medications ?Medication ?Instructions ?Recorded ?Confirmed ?Last Taken ?Type escitalopram oxalate 10 mg tablet mg 08/05/25 Unknown History propranolol 20 mg tablet mg 08/05/25 Unknown History rimegepant 75 mg disintegrating mg 08/05/25 Unknown H istory tablet (Nurtec ODT) spironolactone 100 mg tablet mg 08/05/25 Unknown Hist ory Allergies Allergy/AdvReac Type Severity Reaction Status Date / Time No Known Allergies Allergy Verified 10/18/25 12:46 Review of Systems Review of Systems: CONSTITUTIONAL: Reports fever. EYES: Denies visual changes, redness, or discharge. ENT: Denies otalgia but reports sore throat and congestion. CARDIOVASCULAR: Denies chest pain, palpitations, or edema. RESPIRATORY: Denies cough or dyspnea. GASTROINTESTINAL: Denies abdominal pain, nausea, vomiting, or diarrhea. GENITOURINARY: Denies dysuria or hematuria. SKIN: Denies rash or itching. MUSCULOSKELETAL: Denies back pain and joint pain, but reports myalgia. NEUROLOGIC: Reports headache but denies numbness or weakness. Pertinent positives per HPI. PMFSH Comments At the time of my signature, I reviewed and agree with the nursing past medical, surgical, social, and family history. There is no relevant family history pertinent to the patient complaint. Exam Narrative: GENERAL: This is a well-nourished, well-developed patient, in no apparent distress. HEAD: normocephalic, atraumatic. EYES: PERRL. Sclera clear/white. Vision is grossly intact. EARS: External ears normal, auditory canals clear and without drainage, TMs normal without perforation. Hearing grossly intact. NOSE: External nose normal. Nasal congestion. THROAT: Mucous membranes moist, oropharyngeal erythema. NECK: Neck supple, non-tender without lymphadenopathy, masses or thyromegaly. CARDIOVASCULAR: Regular rate and rhythm without murmurs, gallops, or rubs. RESPIRATORY: Clear to auscultation. Breath sounds equal bilaterally. No wheezes, rales, or rhonchi. GASTROINTESTINAL: Abdomen soft, non-tender, nondistended. Bowel sounds are active. No hepato-splenomegaly, or palpable masses. No guarding. SKIN: warm, intact with no suspicious lesions or rash, good texture and turgor. NEURO: awake, alert, and oriented to person, place and time. There were no obvious focal neurologic abnormalities. Course Course Level of Care: Express Care Visit Vital Signs Vital signs: Vital Signs Temperature 98.2 F 10/18/25 12:39 Pulse Rate 98 10/18/25 12:39 Respiratory Rate 20 10/18/25 12:39 Blood Pressure 111/82 10/18/25 12:39 Pulse Oximetry 99 10/18/25 12:39 Oxygen Delivery Room Air 10/18/25 12:39 Temperature 98.2 F 10/18/25 12:39 Pulse Rate 98 10/18/25 12:39 Respiratory Rate 20 10/18/25 12:39 Blood Pressure 111/82 10/18/25 12:39 Pulse Oximetry 99 10/18/25 12:39 Oxygen Delivery Room Air 10/18/25 12:39 Reviewed MDM MDM Narrative Medical decision making narrative: Rapid strep is negative in the office; however we will send to the lab for confirmation; there is a small percentage chance that it can come back positive; if it is, we will call you in 2-3days; and your prescription will be call in to your pharmacy. However, there is NO indication for antibiotic at this time. -Increase your fluids and Vitamin C. -Oral rinses such as: Salt water gargles and/or may use topical anesthetic (eg. Chloraseptic spray) or lozenges to relieve dryness or throat pain. -Take tylenol and ibuprofen as needed for pain and fever as directed. -Frequent hand washing or hand web coordinator is one of the best ways to prevent spread of infection. -Follow up with primary care provider in 2-3 days if condition is not improving or seek ER visit if your child starts breathing fast/has trouble breathing, is not drinking enough fluids, muffle voice, difficulty opening the mouth or will not wake up or will not interact with you. Differential Diagnosis Differential Diagnosis: strep, pharyngitis, influenza, covid, viral illness Lab Data [facility] Lab Attestation statement: I personally reviewed the patient's lab results. Critical Care Time Critical Care Time Critical Care Time: No Discharge Plan Discharge Clinical Impression: Acute viral pharyngitis Patient Disposition: Home Condition: Stable Instructions: Pharyngitis (ED) Additional Instructions: Rapid strep is negative in the office; however we will send to the lab for confirmation; there is a small percentage chance that it can come back positive; if it is, we will call you in 2-3days; and your prescription will be call in to your pharmacy. However, there is NO indication for antibiotic at this time. -Increase your fluids and Vitamin C. -Oral rinses such as: Salt water gargles and/or may use topical anesthetic (eg. Chloraseptic spray) or lozenges to relieve dryness or throat pain. -Take tylenol and ibuprofen as needed for pain and fever as directed. -Frequent hand washing or hand web coordinator is one of the best ways to prevent spread of infection. -Follow up with primary care provider in 2-3 days if condition is not improving or seek ER visit if your child starts breathing fast/has trouble breathing, is not drinking enough fluids, muffle voice, difficulty opening the mouth or will not wake up or will not interact with you. Patient Language: Wallisian Prescriptions: No Action spironolactone 100 mg tablet propranolol 20 mg tablet escitalopram oxalate 10 mg tablet Nurtec ODT 75 mg tablet,disintegrating Follow-up/Referrals: Leslie,Katelynn Crum APRN [Primary Care Provider, Family Practice] Stand Alone Forms: Work/School Release IP Time of Disposition: 13:03
[2025-10-18 12:39] VITALS: BP 111/82; PULSE 98; RESP 20; TEMP 36.8; O2SAT 99
[2025-10-18 13:05] LABS: EDSTREPNEGPOS1 Negative (Negative)
[2025-10-18 13:05] LABS: EDCOVIDSCREEN Negative (Negative); EDINFLUASCREEN Negative (Negative); EDINFLUBSCREEN Negative (Negative)
== END 2025-10-18 13:07 | disposition home or self-care (01) ==
PROVIDERS: Emergency Provider Nurse Practitioner; PCP Nurse Practitioner Family
DX: J02.8 Acute pharyngitis due to other specified organisms (principal); Z20.822 Contact with and (suspected) exposure to COVID-19; F41.9 Anxiety disorder, unspecified; F32.A Depression, unspecified
CPT/HCPCS: 87081; 87426; 87804; 87880; 99213; G0463